=== PATIENT | male | born 1980 | race African-American/Black ===

== ENCOUNTER 2022-06-04 21:07 | Emergency (ER) | payer OTHER ==
[~2022-06-04] VITALS: Ht 182.9 cm; Wt 104.3 kg
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
--- NOTE | 2022-06-04 22:34 | NUR ---
Dr. Carey at bedside for MSE.
--- NOTE | 2022-06-04 22:50 | NUR ---
Dr. Carey at bedside.
[2022-06-04] MEDS ORDERED: ONDA4TAB11 PO (23:01)
--- NOTE | 2022-06-04 23:05 | NUR ---
Patient discharged to home in stable condition. Written and verbal after care instructions given. Patient verbalizes understanding of instructions. Stressed follow up or return to ER for worsening s/s. Patient ambulated out of the ER with steady gait. All belongings with patient.
[2022-06-04 23:06] VITALS: BP 140/90
== END 2022-06-04 23:06 | disposition home or self-care (01) ==
LOC: ER 21:07
DX: M54.2 Cervicalgia (principal); F17.210 Nicotine dependence, cigarettes, uncomplicated; Z79.899 Other long term (current) drug therapy; V89.2XXA Person injured in unspecified motor-vehicle accident, traffic, initial encounter; Y93.89 Activity, other specified; Y92.89 Other specified places as the place of occurrence of the external cause; Y99.8 Other external cause status
CPT/HCPCS: A4663